=== PATIENT | female | born 1945 | race Caucasian/White ===

== ENCOUNTER 2024-03-06 13:46 | Emergency (ER) | payer MEDICARE, BC ==
[~2024-03-06] VITALS: Ht 160 cm; Wt 68.0 kg
[2024-03-06] MEDS ORDERED: CEFTRIAXONE 1 G VIAL ONE (14:30)
[2024-03-06] MEDS: CEFTRIAXONE 2 G in IV DEXTROSE 5% 100 ML IV ONE (14:41)
[2024-03-06] MEDS: IV NORMAL SALINE 1000 ML BAG IV ONE ×2 (14:41→15:44)
[2024-03-06 14:44] LABS: BASOPHILS # (AUTO) 0.1 K/UL (0.0-0.2); BASOPHILS % (AUTO) 1.1 % (0.0-2.0); EOSINOPHILS # (AUTO) 0.1 K/uL (0.0-0.7); EOSINOPHILS % (AUTO) 1.2 % (0.0-7.0); HEMATOCRIT 37.8 % (31.2-41.9); HEMOGLOBIN 12.1 g/dL (10.9-14.3); LYMPHOCYTES # (AUTO) 2.1 K/uL (0.8-4.8); LYMPHOCYTES % (AUTO) 30.8 % (20.5-51.5); MEAN CORPUSCULAR HEMOGLOBIN 26.8 uug (24.7-32.8); MEAN CORPUSCULAR HGB CONC 32 g/dL (32.3-35.6); MEAN CORPUSCULAR VOLUME 83.5 fL (75.5-95.3); MONOCYTES # (AUTO) 0.6 K/uL (0.1-1.30); MONOCYTES % (AUTO) 9.5 % (0.0-11.0); NEUTROPHILS # (AUTO) 3.8 K/uL (1.8-8.9); NEUTROPHILS % (AUTO) 57.4 % (38.5-71.5); PLATELET COUNT (AUTO) 233 K/uL (179-408); RED BLOOD CELL COUNT(AUTO) 4.53 MIL/uL (3.63-4.92); RED CELL DISTRIBUTION WIDTH 13.8 % (12.3-17.7); WHITE BLOOD COUNT (AUTO) 6.7 K/uL (3.8-11.8)
[2024-03-06 14:47] LABS: DIFFERENTIAL COMMENT 1
[2024-03-06 14:51] LABS: CALCIUM 8.9 mg/dL (8.5-10.1); CARBON DIOXIDE 29 mmol/L (21-32); CHLORIDE 107 mmol/L (98-107); CREATININE 0.8 mg/dL (0.6-1.3); GLUCOSE 103 mg/dL (74-106); POTASSIUM 3.5 mmol/L (3.5-5.1); SODIUM SERUM 144 mmol/L (136-145); UREA NITROGEN, BLOOD 18 mg/dL (7-18)
[2024-03-06 15:06] LABS: ALANINE AMINOTRANSFERASE 18 U/L (14-59); ALBUMIN 3.2 g/dL (3.4-5.0); ALKALINE PHOSPHATASE 58 U/L (50-136); ASPARTATE AMINOTRANSFERASE 34 U/L (15-37); BILIRUBIN,DIRECT 0.2 mg/dL (0.0-0.2); BILIRUBIN,TOTAL 1.1 mg/dL (0.2-1.0); NT-PRO BNP 256 pg/mL (0-125); TOTAL PROTEIN, SERUM 6.6 g/dL (6.4-8.2)
[2024-03-06] MEDS ORDERED: QUET25TA PO (15:29)
[2024-03-06] MEDS ORDERED: MEMA5TAB42 PO (15:29)
[2024-03-06] MEDS ORDERED: SIME80TA15 PO (15:29)
[2024-03-06] MEDS ORDERED: ACET-73 PO (15:29)
[2024-03-06] MEDS ORDERED: BACI1CAP14 PO (15:29)
[2024-03-06] MEDS ORDERED: POLY17PO4 PO (15:29)
[2024-03-06] MEDS ORDERED: ASPI81TA31 PO (15:29)
[2024-03-06] MEDS ORDERED: FAMO-132 PO (15:29)
[2024-03-06] MEDS ORDERED: SENN-18 PO (15:29)
[2024-03-06] MEDS ORDERED: MIRT7.5T10 PO (15:29)
[2024-03-06] MEDS ORDERED: OMEG1000 PO (15:29)
[2024-03-06] MEDS ORDERED: BRIM10DR6 LEFTEYE (15:29)
[2024-03-06] MEDS ORDERED: CYAN100T44 PO (15:29)
[2024-03-06] MEDS ORDERED: MELA5TAB20 PO (15:29)
[2024-03-06] MEDS ORDERED: NETA2.5D LEFTEYE (15:29)
[2024-03-06] MEDS ORDERED: MOXI3DRO10 PO (15:29)
[2024-03-06] MEDS ORDERED: MULT-594 PO (15:29)
[2024-03-06] MEDS ORDERED: FLUT16SP16 NS (15:29)
[2024-03-06] MEDS ORDERED: CALC-897 PO (15:29)
[2024-03-06] MEDS ORDERED: DORZ10DR13 LEFTEYE (15:29)
[2024-03-06] MEDS ORDERED: SENN8.6T19 PO (15:29)
[2024-03-06] MEDS ORDERED: ALPH1TAB9 PO (15:29)
[2024-03-06] MEDS ORDERED: CALC300T4 PO (15:29)
[2024-03-06 17:00] VITALS: O2SAT 97
== END 2024-03-06 18:13 | disposition home or self-care (01) ==
LOC: ER 13:46
DX: H05.012 Cellulitis of left orbit (principal); H44.002 Unspecified purulent endophthalmitis, left eye; Z79.82 Long term (current) use of aspirin; Z79.899 Other long term (current) drug therapy; Z88.0 Allergy status to penicillin; Z88.2 Allergy status to sulfonamides
CPT/HCPCS: 99284; 96365; 80076; 80048; 83880; 85025; 84145; 85730; 87040 ×2; 84484; 36415; 93005; 83605; J0696 ×2; J7040 ×2; A4606; A4663